=== PATIENT | female | born 1950 | race Caucasian/White ===

== ENCOUNTER 2017-05-12 16:39 | Emergency (ER) | payer OTHER ==
[2017-05-12 16:45] VITALS: BP 147/108; PULSE 108; RESP 12; TEMP 97.7; O2SAT 95
--- NOTE | 2017-05-12 17:24 | EDPHY ---
H & P Time Seen by Provider: 05/12/17 17:00 HPI/ROS: This patient fell while walking her dog due to tripping over a large rock as her dog pulled her, excited by the presence of another dog a few days prior to arrival lying on outstretched left ring finger with a minor injury. She has had increasing ecchymosis and swelling the affected finger with mild ache at the PIP joint since that time and realize she was unable to remove her ring today so came in for evaluation in for removal of the ring. She reports the ache in the fingers mild 1 or 2/10 slightly worse with bending the finger. She arrived by private vehicle for evaluation of her complaint. ROS: Neuro: No numbness or tingling. Musculoskeletal: No other injuries from the fall Integumentary: No lacerations or abrasions. 5 point ROS is otherwise negative. Past Medical/Surgical History: Otherwise healthy Smoking Status: Never smoked Physical Exam: Physical Exam Vital signs are normal. General: No acute distress HEENT: Atraumatic. Eyes: Pupils equal and react to light. Extraocular motions are intact. Cardiac: Brisk capillary refill is intact throughout. Skin: No rash or pallor. Extremities: Atraumatic normal except for left ring finger Left ring finger: Patient has circumferential swelling ecchymosis and mild tenderness the PIP joint. No malrotation when viewed on end. She is able to flex extend the finger but has slight increased pain with flexion. There is a ring present at the proximal finger causing a constriction Neuro: Alert with no sensorimotor deficits in the affected finger. Initial differential diagnosis: Finger sprain versus fracture with constriction syndrome from ring Constitutional: Initial Vital Signs Temperature (C) 36.5 C 05/12/17 16:41 Heart Rate 108 H 05/12/17 16:41 Respiratory Rate 12 05/12/17 16:41 Blood Pressure 147/108 H 05/12/17 16:41 O2 Sat (%) 95 05/12/17 16:41 O2 Delivery Mode Room Air Allergies/Adverse Reactions: No Known Allergies Allergy (Unverified 05/12/17 16:46) Home Medications: Medication Instructions Recorded Multivitamin 05/12/17 MDM/Departure - MDM Diagnostics: Two view finger x-ray reveals a subtle cortical abnormality at the proximal middle phalanx. On my initial read I overlooked this finding. Dr. Joe Cantrell called prior to the patient's departure reporting the subtle finding. Imaging: Discussed imaging studies w/ painter maintenance Radiologist Procedures: Ring removal: A ring cutter was employed by our tech with my supervision with removal of her ring without complications. This was done with verbal consent. ED Course/Re-evaluation: Patient is placed in a volar [place] splint by our tech with my supervision. Patient is neurovascularly intact post splint application. I counseled her regarding her finger fracture. She will follow up with orthopedics for further evaluation. Discussion: Patient with nondisplaced subtle finger fracture without neurovascular compromise. She had a constriction syndrome from her ring with successful removal of her ring. No other injuries evident from her fall. - Depart Disposition: Home, Routine, Self-Care Clinical Impression: Tight ring on finger Finger fracture, left Qualifiers: Encounter type: initial encounter Finger: ring finger Fracture type: closed Phalanx: middle Fracture alignment: nondisplaced Qualified Code(s): S62.655A - Nondisplaced fracture of medial phalanx of left ring finger, initial encounter for closed fracture Clinical Impression: (Ruled Out): Finger sprain Condition: Good Instructions: Finger Sprain (ED) Additional Instructions: Diagnosis: 1. Finger fracture 2. Tight ring on finger-removed Plan: Aluminum finger splint Tylenol or ibuprofen if needed for discomfort Follow up with Dr. Santos-hand specialist or your orthopedic doctor for further evaluation in 2-5 days Return for any significant worsening despite the treatment plan Referrals: Belle Berumen MD [Primary Care Provider] - As per Instructions Vishnu Santos MD [Medical Doctor] - As per Instructions
== END 2017-05-12 17:30 | disposition home or self-care (01) ==
LOC: CED 16:39
DX: S62.655A Nondisplaced fracture of middle phalanx of left ring finger, initial encounter for closed fracture (principal); W01.0XXA Fall on same level from slipping, tripping and stumbling without subsequent striking against object, initial encounter; Y99.8 Other external cause status; Y93.01 Activity, walking, marching and hiking
CPT/HCPCS: 73140; 99283; L3925